=== PATIENT | female | born 1995 | race Caucasian/White ===

== ENCOUNTER 2019-05-29 12:04 | Outpatient (REF) | payer OTHER, SELFPAY ==
[2019-05-29 20:28] LABS: Anion Gap 8.8 mmol/L (3-11); BUN 12 mg/dL (7-18); CO2 27.2 mmol/L (21.0-32.0); CREATININE 0.76 mg/dL (0.55-1.02); Calcium 9.3 mg/dL (8.5-10.1); Chloride 105 mmol/L (98-107); Glucose 73 mg/dL (74-106); Potassium 4.4 mmol/L (3.5-5.1); Sodium 141 mmol/L (136-145); TSH (W/Ref FT4) 0.23 uIU/mL (0.36-3.74)
[2019-05-29 20:46] LABS: FREE T4 1.08 ng/dL (0.76-1.46)
== END 2019-05-29 12:24 ==
LOC: NCHCN 12:04
PROVIDERS: PCP Nurse Practitioner Family; Visit Provider Nurse Practitioner Family
DX: E03.9 Hypothyroidism, unspecified (principal); Z90.5 Acquired absence of kidney
CPT/HCPCS: 80048; 84439; 84443

== ENCOUNTER 2019-08-09 21:36 | Outpatient (REF) | payer OTHER, SELFPAY ==
[2019-08-09 20:44] LABS: TSH (W/Ref FT4) 4.19 uIU/mL (0.36-3.74)
[2019-08-09 21:06] LABS: FREE T4 1.22 ng/dL (0.76-1.46)
== END 2019-08-09 21:56 ==
LOC: NCHCN 21:36
PROVIDERS: PCP Nurse Practitioner Family; Visit Provider Nurse Practitioner Family
DX: E03.9 Hypothyroidism, unspecified (principal)
CPT/HCPCS: 84439; 84443

== ENCOUNTER 2019-09-24 16:10 | Outpatient (REF) | payer OTHER, SELFPAY ==
[2019-09-24 21:08] LABS: TSH 3.02 uIU/mL (0.36-3.74)
== END 2019-09-24 16:30 ==
LOC: NCHCN 16:10
PROVIDERS: PCP Nurse Practitioner Family; Visit Provider Nurse Practitioner Family
DX: E03.9 Hypothyroidism, unspecified (principal)
CPT/HCPCS: 84439; 84443

== ENCOUNTER 2020-02-22 17:31 | Outpatient (REF) | payer OTHER, SELFPAY ==
[2020-02-22 20:46] LABS: FREE T4 1.11 ng/dL (0.76-1.46); TSH 1.29 uIU/mL (0.36-3.74)
== END 2020-02-22 17:51 ==
LOC: NCHCN 17:31
PROVIDERS: PCP Nurse Practitioner Family; Visit Provider Nurse Practitioner Family
DX: E03.9 Hypothyroidism, unspecified (principal)
CPT/HCPCS: 84439; 84443

== ENCOUNTER 2020-02-27 18:30 | Outpatient (REF) | payer OTHER, SELFPAY ==
[2020-02-27 22:05] LABS: HCT 40.2 % (36.0-46.0); HGB 13.7 g/dL (11.2-15.7); MCH 29.5 pg (27.0-33.0); MCHC 34.1 % (32.0-36.0); MCV 86.5 fL (80-95); MPV 9.2 fL (8.0-11.0); Platelet Count 291 10^3/uL (130-400); RBC 4.65 10^6/uL (3.93-5.22); RDW 11.9 % (11.7-14.6); RDW-SD 37.3 fL; WBC 6.94 10^3/uL (4.4-10.8)
[2020-02-27 22:07] LABS: Iron 78 ug/dL (50-170); Total Iron Binding Capacity 264 ug/dL (250-450); Transferrin Sat 30 % (15-50)
[2020-02-28 04:48] LABS: Vitamin D 25 Total 28.6 ng/ml (30-100)
== END 2020-02-27 18:50 ==
LOC: NCHCN 18:30
PROVIDERS: PCP Nurse Practitioner Family; Visit Provider Nurse Practitioner Family
DX: R53.83 Other fatigue (principal)
CPT/HCPCS: 82306; 85027; 83540; 83550

== ENCOUNTER 2021-03-03 19:04 | Outpatient (REF) | payer MEDICAID, SELFPAY ==
[2021-03-03 22:38] LABS: Anion Gap 7.5 mmol/L (3-11); BUN 18 mg/dL (7-18); CO2 28.5 mmol/L (21.0-32.0); CREATININE 0.9 mg/dL (0.55-1.02); Calcium 9.1 mg/dL (8.5-10.1); Chloride 102 mmol/L (98-107); Glucose 83 mg/dL (74-106); Sodium 138 mmol/L (136-145); TSH (W/Ref FT4) 1.09 uIU/mL (0.36-3.74)
== END 2021-03-03 19:05 | disposition home or self-care (01) ==
LOC: NCHCN 19:04
PROVIDERS: PCP Nurse Practitioner Family; Visit Provider Nurse Practitioner Family
DX: E03.9 Hypothyroidism, unspecified (principal); Z90.5 Acquired absence of kidney
CPT/HCPCS: 80048; 84443

== ENCOUNTER 2021-10-23 14:03 | Outpatient (REF) | payer MEDICAID, SELFPAY ==
--- NOTE | 2021-10-23 10:00 | SKI_PTH ---
PATIENT: Noris Jane LOC: [facility] U#:[id number] AGE/SX: 25/F ROOM: RE10/23/[address]: Marilou Gonzalez : 1995 BED: DIS: 10/23/2021 SPEC #: [id number] RECD: 10/23/21 14:31 STATUS: LAZ REAshli #: [id number] DEMETRI: 10/23/21 10:[address]: Marilou Gonzalez DEPT: Surgical Specimen RECD BY: Svitlana Gomez Tissues: 1 - SKIN BIOPSY(SHAVE/PUNCH) Procedures: SKIN LEVEL 4 Comments: [id number]
== END 2021-10-23 14:04 | disposition home or self-care (01) ==
LOC: NCHCN 14:03
PROVIDERS: PCP Nurse Practitioner Family; Visit Provider Nurse Practitioner Family
DX: D23.72 Other benign neoplasm of skin of left lower limb, including hip (principal)
CPT/HCPCS: 88305

== ENCOUNTER 2022-01-08 15:41 | Outpatient (REF) | payer MEDICAID, SELFPAY ==
[2022-01-08 20:42] LABS: HCT 39.7 % (36.0-46.0); HGB 13.5 g/dL (11.2-15.7); MCH 30.2 pg (27.0-33.0); MCV 89 fL (80-95); MPV 9.5 fL (8.0-11.0); Platelet Count 267 10^3/uL (130-400); RBC 4.47 10^6/uL (3.93-5.22); RDW 11.7 % (11.7-14.6); RDW-SD 37.8 fL; WBC 6.06 10^3/uL (4.4-10.8)
[2022-01-08 21:06] LABS: ALT 17 U/L (14-59); AST 18 U/L (15-37); Albumin 4.2 g/dL (3.4-5.0); Alkaline Phosphatase 56 U/L (46-116); BUN 11 mg/dL (7-18); Bilirubin, Total 0.3 mg/dL (0.2-1.0); CREATININE 0.9 mg/dL (0.55-1.02); Calcium 8.9 mg/dL (8.5-10.1); Chloride 103 mmol/L (98-107); Estimated GFR 91.55 (mL/min/1.73m2); Glucose 95 mg/dL (74-106); Potassium 3.7 mmol/L (3.5-5.1); Sodium 138 mmol/L (136-145); TSH (W/Ref FT4) 0.44 uIU/mL (0.36-3.74); Total Protein 7.3 g/dL (6.4-8.2)
== END 2022-01-08 15:42 | disposition home or self-care (01) ==
LOC: NCHCN 15:41
PROVIDERS: PCP Nurse Practitioner Family; Visit Provider Family Medicine
DX: R53.83 Other fatigue (principal); M22.2X1 Patellofemoral disorders, right knee
CPT/HCPCS: 80053; 85027; 84443

== ENCOUNTER 2022-06-10 11:00 | Outpatient (REF) | payer BC, MEDICAID, SELFPAY ==
--- NOTE | 2022-06-10 14:30 | PAPFT_PTH ---
PATIENT: Noris Jane LOC: [facility] U#:[id number] AGE/SX: 26/F ROOM: RE06/10/[address]: Marilou Gonzalez : 1995 BED: DIS: 06/10/2022 SPEC #: [id number] RECD: 06/11/22 12:47 STATUS: LAZ REAshli #: [id number] DEMETRI: 06/10/22 14:[address]: Marilou Gonzalez DEPT: [facility] Cytology RECD BY: Pauline Weber Tissues: 1 - CX/ENDOCX FOR PAP SMEARS Procedures: PAP THIN PREP/[facility] Screening Comments: [id number] (CHLAMYDIA/GC)
[2022-06-14 14:25] LABS: Chlamydia Result Negative (Negative); GC Result Negative (Negative)
== END 2022-06-10 11:01 | disposition home or self-care (01) ==
LOC: NCHCN 11:00
PROVIDERS: PCP Nurse Practitioner Family; Visit Provider Nurse Practitioner Family
DX: Z00.00 Encounter for general adult medical examination without abnormal findings (principal); Z12.4 Encounter for screening for malignant neoplasm of cervix; Z01.419 Encounter for gynecological examination (general) (routine) without abnormal findings
CPT/HCPCS: 87491; 87591; 88142

== ENCOUNTER 2023-03-10 14:21 | Outpatient (REF) | payer BC, SELFPAY ==
[2023-03-10 21:58] LABS: HGB 13.1 g/dL (11.2-15.7); MCH 29.5 pg (27.0-33.0); MCHC 34.5 % (32.0-36.0); MCV 86 fL (80-95); MPV 9.5 fL (8.0-11.0); Platelet Count 292 10^3/uL (130-400); RBC 4.44 10^6/uL (3.93-5.22); RDW 11.7 % (11.7-14.6); RDW-SD 36.4 fL; WBC 4.51 10^3/uL (4.4-10.8)
[2023-03-10 22:23] LABS: Iron 112 ug/dL (50-170); Total Iron Binding Capacity 297 ug/dL (250-450); Transferrin Sat 38 % (15-50)
[2023-03-10 22:30] LABS: Anion Gap 8.6 mmol/L (3-11); BUN 14 mg/dL (7-18); CO2 28.4 mmol/L (21.0-32.0); CREATININE 0.9 mg/dL (0.55-1.02); Calcium 8.9 mg/dL (8.5-10.1); Chloride 104 mmol/L (98-107); Estimated GFR 90.98 (mL/min/1.73m2); Ferritin 12 ng/mL (8-252); Glucose 78 mg/dL (74-106); Potassium 3.9 mmol/L (3.5-5.1); Sodium 141 mmol/L (136-145); TSH (W/Ref FT4) 0.24 uIU/mL (0.36-3.74)
[2023-03-10 22:47] LABS: FREE T4 1.14 ng/dL (0.76-1.46)
== END 2023-03-10 14:22 | disposition home or self-care (01) ==
LOC: NCHCN 14:21
PROVIDERS: PCP Nurse Practitioner Family; Visit Provider Nurse Practitioner Family
DX: E03.9 Hypothyroidism, unspecified (principal); Z90.5 Acquired absence of kidney; R53.83 Other fatigue
CPT/HCPCS: 80048; 85027; 82728; 83540; 83550; 84439; 84443

== ENCOUNTER 2023-08-11 15:05 | Outpatient (REF) | payer BC, SELFPAY ==
[2023-08-11 15:49] LABS: TSH (W/Ref FT4) 9.12 uIU/mL (0.36-3.74)
[2023-08-11 16:05] LABS: FREE T4 1.01 ng/dL (0.76-1.46)
== END 2023-08-11 15:06 | disposition home or self-care (01) ==
LOC: NCHCN 15:05
PROVIDERS: PCP Nurse Practitioner Family; Visit Provider Nurse Practitioner Family
DX: E03.9 Hypothyroidism, unspecified (principal)
CPT/HCPCS: 84439; 84443